=== PATIENT | female | born 1930 | race Caucasian/White ===

== ENCOUNTER 2019-08-01 12:30 | Inpatient (IN) | payer MEDICARE, MEDICAID ==
[~2019-08-01] VITALS: Ht 144.8 cm; Wt 49.4 kg
--- NOTE | 2019-08-01 12:45 | NUR ---
Pt Estonian speaking only. Await field sales manager. Comfort and safety measures initiated.
[2019-08-01 12:49] LABS: BASOPHILS # (AUTO) 0.1 /CMM (0.0-0.2); BASOPHILS % (AUTO) 0.7 % (0.0-2.0); EOSINOPHILS % (AUTO) 2.8 % (0.0-6.0); HEMATOCRIT 36 % (33-45); HEMOGLOBIN 12.3 g/dL (11.5-14.8); LYMPHOCYTES # (AUTO) 1.9 /CMM (0.8-4.8); LYMPHOCYTES % (AUTO) 21.7 % (20.0-44.0); MEAN CORPUSCULAR HGB CONC 35 g/dl (31.0-36.0); MEAN CORPUSCULAR VOLUME 90 fL (82-100); MONOCYTES # (AUTO) 0.6 /CMM (0.1-1.30); MONOCYTES % (AUTO) 6.5 % (2.0-12.0); NEUTROPHILS # (AUTO) 5.9 /CMM (1.8-8.9); NEUTROPHILS % (AUTO) 68.3 % (43.0-81.0); PLATELET COUNT (AUTO) 456 /CMM (150-450); RED BLOOD CELL COUNT(AUTO) 3.99 MIL/uL (4.0-5.2); WHITE BLOOD COUNT (AUTO) 8.7 K/uL (4.3-11.0)
--- NOTE | 2019-08-01 13:00 | NUR ---
[employer] Sales Clerk Natividad here to interpret. Pt updated with plan of care
[2019-08-01 13:02] LABS: CALCIUM, SERUM 9.1 mg/dL (8.5-10.1); CARBON DIOXIDE 23 mmol/L (21-32); CHLORIDE 102 mmol/L (98-107); CREATININE 0.7 mg/dL (0.6-1.3); GLUCOSE 110 mg/dL (74-106); POTASSIUM 3.3 mmol/L (3.5-5.1); SODIUM SERUM 137 mmol/L (136-145); UREA NITROGEN, BLOOD 13 mg/dL (7-18)
[2019-08-01 13:05] LABS: APPEARANCE,URINE Clear (CLEAR); BILIRUBIN,URINE Negative (NEGATIVE); BLOOD, URINE Trace-intact Ery/uL (NEGATIVE); COLOR,URINE Yellow (YELLOW); KETONES,URINE Negative (NEGATIVE); LEUKOCYTE ESTERASE ,URINE Negative (NEGATIVE); NITRITE, URINE Negative (NEGATIVE); PH,URINE 5.5 (5.0-8.0); PROTEIN,URINE Negative (NEGATIVE); UGLUCOSE Negative (NEGATIVE); UROBILINOGEN,URINE 0.2 EU/dL (0.2)
[2019-08-01 13:08] LABS: BACTERIA,URINE Few /HPF (None Seen); SQUAMOUS EPITHELIAL CELL,UR Few /HPF (None Seen)
[2019-08-01 13:17] LABS: ALANINE AMINOTRANSFERASE 13 U/L (12-78); ALBUMIN 3.9 g/dL (3.4-5.0); ALKALINE PHOSPHATASE 78 U/L (46-116); ASPARTATE AMINOTRANSFERASE 20 U/L (15-37); BILIRUBIN,DIRECT 0.1 mg/dL (0.0-0.2); BILIRUBIN,TOTAL 0.7 mg/dL (0.2-1.0); TOTAL PROTEIN, SERUM 7.6 g/dL (6.4-8.2)
--- NOTE | 2019-08-01 13:27 | NUR ---
DR.BURKOWITZ YESSICA MARINE ENGINEER [facility], TRANSFERRED CALL TO
--- NOTE | 2019-08-01 13:28 | NUR ---
EPIC PAGED, FIGHT MANAGER
[2019-08-01] MEDS ORDERED: MORPHINE SULFATE INJ 2 MG/ML DISP.SYRIN ONE (13:40)
[2019-08-01] MEDS ORDERED: SIMV20TA6 PO (13:48)
[2019-08-01] MEDS ORDERED: FAMO20TA8 PO (13:48)
[2019-08-01] MEDS ORDERED: FERR324T PO (13:48)
[2019-08-01] MEDS ORDERED: ASPI-1152 PO (13:48)
[2019-08-01] MEDS ORDERED: CARV3.122 PO (13:48)
[2019-08-01] MEDS ORDERED: DOCU250C88 PO (13:48)
[2019-08-01] MEDS ORDERED: AMLO5TAB9 PO (13:48)
[2019-08-01] MEDS ORDERED: LOSA100T31 PO (13:48)
[2019-08-01] MEDS ORDERED: MORPHINE SULFATE INJ 2 MG/ML DISP.SYRIN IV ONE (14:00)
[2019-08-01] MEDS ORDERED: MAGNESIUM HYDROXIDE 30 ML UDC PO PRN (14:30)
[2019-08-01] MEDS ORDERED: ACETAMINOPHEN 325 MG TABLET PO PRN (14:30)
[2019-08-01] MEDS ORDERED: POTASSIUM CHLORIDE 20 MEQ TAB.PRT.SR PO ONE (14:30)
[2019-08-01] MEDS ORDERED: ZOLPIDEM TARTRATE 5 MG TABLET PO PRN (14:30)
[2019-08-01] MEDS ORDERED: MORPHINE SULFATE INJ 2 MG/ML DISP.SYRIN SQ PRN (14:30)
[2019-08-01] MEDS ORDERED: Z GUARD REMEDY 2 OZ OINT TP PRN (14:30)
[2019-08-01] MEDS ORDERED: MAG HYDROX/AL HYDROX/SIMETH 30 ML UDC PO PRN (14:30)
[2019-08-01] MEDS ORDERED: HYDROCODONE/APAP 5/325MG 1 EACH TABLET PO PRN (14:30)
[2019-08-01] MEDS ORDERED: DOCUSATE SODIUM 250 MG CAPSULE PO PRN (14:30)
[2019-08-01] MEDS ORDERED: hydrALAZINE HCL IV 20 MG VIAL IV PRN (14:30)
[2019-08-01] MEDS ORDERED: ONDANSETRON HCL/PF 4 MG/2 ML VIAL IVP PRN (14:30)
[2019-08-01] MEDS ORDERED: hydrALAZINE HCL 25 MG TABLET PO PRN (14:30)
--- NOTE | 2019-08-01 14:45 | NUR ---
Pt appears comfortable in bed. Son at bedside aware of plan of care For admit to room 103. Nurse Knowledge Exchange w/RN Soon Transport to room in NAD Stable. VSS
--- NOTE | 2019-08-01 14:59 | NUR ---
RECEIVED REPORT FROM CHARGE NURSE SOON. PT IN BED, AWAKE, ON ROOM AIR, SATURATING WELL, RESPIRATIONS EASY AND UNLABORED, ALERT AND ORIENTED X 3, SERBIAN SPEAKING. FOSTER CATHETER DRAINING CLEAR YELLOW URINE. LEFT AC G18 PATENT, SALINE LOCK. BED IN LOW POSITION, LOCKED, CALL LIGHT WITHIN REACH.
--- NOTE | 2019-08-01 15:48 | NUR ---
SACRAL REDNESS NOTED ON ADMISSION, PHOTO TAKEN, PLACED INTO CHART, WOUND CONSULT ORDERED.
[2019-08-01] MEDS: IV NS 0.9% 1,000 ML IV PRN (15:58)
[2019-08-01 16:00] VITALS: BP 150/70
--- NOTE | 2019-08-01 16:20 | NUR ---
CONSENT FORM SIGNED FOR LEFT HIP INTRAMEDULLARY NAIL PROCEDURE
[2019-08-01] MEDS: CARVEDILOL 3.125 MG TABLET PO SCH (17:12)
[2019-08-01] MEDS: SIMVASTATIN 20 MG TABLET PO SCH (17:12)
[2019-08-01] MEDS: FAMOTIDINE (20 MG) 20 MG TABLET PO SCH (17:12)
--- NOTE | 2019-08-01 18:00 | NUR ---
NEW IV ACCESS OBTAINED, RIGHT AC G20, SITE IS CLEAN, PATENT, SALINE LOCK IN PLACE.
--- NOTE | 2019-08-01 18:53 | NUR ---
MS RN CLOSING NOTE PT IN BED, AWAKE, ALERT AND ORIENTED X 3, FAMILY BY BEDSIDE. ON ROOM AIR, SATURATING WELL, NO SIGNS OF RESPIRATORY DISTRESS NOTED, RESPIRATIONS EASY UNLABORED. IV NS INFUSING AT 75ML/HR INTO LEFT AC G18, SITE IS PATENT, NO SIGNS OF INFILTRATION NOTED. ALL DUE MEDS GIVEN, PROVIDED SAFETY AND COMFORT THROUGHOUT SHIFT. BED IN LOW POSITION, LOCKED, CALL LIGHT PLACED WITHIN REACH. WILL ENDORSE TO NOC SHIFT NURSE.
--- NOTE | 2019-08-01 20:00 | NUR ---
MS RN INITIAL NOTE PT IN BED, AWAKE, ALERT AND ORIENTED X 3, FAMILY BY BEDSIDE, S/P FALL LT HIP FX, POSSIBLE ORIF TOMORROW, NPO AFTER MDNIGHT. ON ROOM AIR, SATURATING WELL, NO SIGNS OF RESPIRATORY DISTRESS NOTED, RESPIRATIONS EASY UNLABORED. IV NS INFUSING AT 75ML/HR INTO LEFT AC G18, SITE IS PATENT, NO SIGNS OF INFILTRATION NOTED. ALL DUE MEDS GIVEN, PROVIDED SAFETY AND COMFORT THROUGHOUT SHIFT. BED IN LOW POSITION, LOCKED, CALL LIGHT PLACED WITHIN REACH. WILL ENDORSE TO NOC SHIFT NURSE.
[2019-08-02] MEDS: IV NS 0.9% 1,000 ML IV PRN (05:53)
--- NOTE | 2019-08-02 06:25 | NUR ---
RN CLOSING NOTE ENDORSED PT TO AM RN, PT FOR ORIF TODAY, NPO EXCEPT MEDS, CONSENT SIGNED AND CHECK LIST COMPLETE, IV SITE INTACT, PATENT WELL SECURED. ALL PT NEEDS MET, NS@75ML, WELL TOLERATED.
[2019-08-02 07:19] LABS: BASOPHILS % (AUTO) 0.6 % (0.0-2.0); EOSINOPHILS % (AUTO) 1.7 % (0.0-6.0); HEMATOCRIT 34 % (33-45); HEMOGLOBIN 11.6 g/dL (11.5-14.8); LYMPHOCYTES # (AUTO) 1.5 /CMM (0.8-4.8); MEAN CORPUSCULAR HGB CONC 34 g/dl (31.0-36.0); MEAN CORPUSCULAR VOLUME 90 fL (82-100); MONOCYTES # (AUTO) 0.6 /CMM (0.1-1.30); MONOCYTES % (AUTO) 8.5 % (2.0-12.0); NEUTROPHILS # (AUTO) 5.3 /CMM (1.8-8.9); NEUTROPHILS % (AUTO) 69.2 % (43.0-81.0); PLATELET COUNT (AUTO) 423 /CMM (150-450); RED BLOOD CELL COUNT(AUTO) 3.82 MIL/uL (4.0-5.2); WHITE BLOOD COUNT (AUTO) 7.6 K/uL (4.3-11.0)
--- NOTE | 2019-08-02 07:20 | NUR ---
MS/RN OPENING NOTES RECEIVED PATIENT IN BED. SLEEPING COMFORTABLY. EASILY AROUSABLE. PATIENT ALERT AND ORIENTED X3. NO PAIN OR ACUTE DISTRESS AT THIS TIME. RESPIRATION EVEN AND UNLABORED. SKIN IS DRY WARM TO TOUCH. CONTINUE TO MONITOR PATIENT FOR S/P FALL, LT HIP FX. NPO STATUS AFTER MIDNIGHT MAINTAINED. PATIENT NOTED ON ROOM AIR, SATURATING WELL. NOTED WITH IV ACCESS ON LAC #18G WITH NS INFUSING AT 75ML/HR. IV INTACT AND PATENT. FLUSHING WELL. NO S/S OR INFECTION OR INFILTRATION. ALL NEEDS ANTICIPATED. CALL LIGHT WITHIN REACHED. SAFETY MAINTAINED. BED LOCKED AND IN LOWEST POSITION. WILL CONTINUE TO MONITOR CLOSELY.
[2019-08-02 07:25] LABS: CHOLESTEROL 159 mg/dL (<200); HDL CHOLESTEROL 56 mg/dL (40-60); LDL 81 mg/dL (0-99); TRIGLYCERIDES 94 mg/dL (30-150)
[2019-08-02 07:27] LABS: CALCIUM, SERUM 8.5 mg/dL (8.5-10.1); CARBON DIOXIDE 23 mmol/L (21-32); CHLORIDE 103 mmol/L (98-107); CREATININE 0.5 mg/dL (0.6-1.3); GLUCOSE 111 mg/dL (74-106); MAGNESIUM 1.7 mg/dL (1.8-2.4); PHOSPHORUS 2.6 mg/dL (2.5-4.9); POTASSIUM 3.9 mmol/L (3.5-5.1); SODIUM SERUM 137 mmol/L (136-145); UREA NITROGEN, BLOOD 6 mg/dL (7-18)
[2019-08-02 08:00] VITALS: BP 156/74
[2019-08-02] MEDS: AMLODIPINE BESYLATE 5 MG TABLET PO SCH (08:54)
[2019-08-02] MEDS: CARVEDILOL 3.125 MG TABLET PO SCH ×2 (08:54→17:00)
[2019-08-02] MEDS: ASPIRIN EC 81 MG TABLET.DR PO SCH (08:54)
[2019-08-02] MEDS: FAMOTIDINE (20 MG) 20 MG TABLET PO SCH ×2 (08:55→17:00)
[2019-08-02] MEDS: Magnesium 1GM/D5W 100ML PREMIX 100 ML IV SCH ×2 (09:38→10:33)
--- NOTE | 2019-08-02 09:46 | NUR ---
WOUND CARE CONSULT: PT PRESENTS WITH BLANCHABLE REDNESS TO SACRUM, PRESENT ON ADMISSION. RECOMMENDATIONS MADE FOR SKIN PROTECTION. DISCUSSED WITH NURSING STAFF. PT ON ISOFLEX LOW AIRLOSS BED. WILL SEE PRN. ANGELES IN AGREEMENT WITH PLAN OF CARE. Addendum: 08/02/19 at 0947 by NABIL BARBOSA WND[facility] Amended: Links added.
[2019-08-02 16:00] VITALS: BP 146/72
[2019-08-02] MEDS ORDERED: MIDAZOLAM HCL 2 MG/2ML VIAL ONE (16:30)
[2019-08-02] MEDS ORDERED: FENTANYL PF 250MCG/5ML AMPUL ONE (16:31)
[2019-08-02] MEDS ORDERED: ROCURONIUM BROMIDE 50 MG/5 ML ONE (16:32)
[2019-08-02] MEDS ORDERED: BACITRACIN 50000 UNITS/VIAL ONE (16:33)
[2019-08-02] MEDS ORDERED: BUPIVACAINE 0.5 % PF 150 MG/30 ML VIAL ONE (16:33)
[2019-08-02] MEDS ORDERED: ANESTHESIA TRAY IN PYXIS 1 EA TRAY MC ONE (16:33)
[2019-08-02] MEDS: SIMVASTATIN 20 MG TABLET PO SCH (17:11)
--- NOTE | 2019-08-02 17:11 | NUR ---
MS/RN NOTES PATIENT WAS PICKED UP BY NURSES FROM SURGERY. FAMILY AT BEDSIDE. PATIENT LEFT THE UNIT IN STABLE CONDITION. AWAITING FOR THE PATIENT'S RETURN.
--- NOTE | 2019-08-02 19:18 | NUR ---
RN M/S NOTE RECEIVED REPORT FROM BERNARD LANDERS IN OR PT TO BE TRANSPORTED BACK TO ROOM, PT HAD LEFT HIP SURGERY, 3 NEW INCISIONS, WILL ASSESS PT WHEN ARRIVES ON UNIT.
--- NOTE | 2019-08-02 19:21 | NUR ---
MS/RN NOTES PATIENT IS STILL IN OR. ENDORSED TO PM NURSE. AWAITING FOR PATIENT'S RETURN.
[2019-08-02 19:29] LABS: CREATININE 0.6 mg/dL (0.6-1.3); POTASSIUM 3.6 mmol/L (3.5-5.1)
[2019-08-02] MEDS ORDERED: ACETAMINOPHEN 325 MG TABLET PO PRN (19:30)
[2019-08-02 20:00] VITALS: BP 160/79
[2019-08-02 23:20] LABS: BASOPHILS # (AUTO) 0.1 /CMM (0.0-0.2); BASOPHILS % (AUTO) 0.5 % (0.0-2.0); EOSINOPHILS % (AUTO) 0.3 % (0.0-6.0); HEMATOCRIT 37 % (33-45); HEMOGLOBIN 12.2 g/dL (11.5-14.8); LYMPHOCYTES # (AUTO) 0.9 /CMM (0.8-4.8); LYMPHOCYTES % (AUTO) 8.1 % (20.0-44.0); MEAN CORPUSCULAR HGB CONC 33 g/dl (31.0-36.0); MEAN CORPUSCULAR VOLUME 91 fL (82-100); MONOCYTES # (AUTO) 0.5 /CMM (0.1-1.30); MONOCYTES % (AUTO) 4.8 % (2.0-12.0); NEUTROPHILS # (AUTO) 9.9 /CMM (1.8-8.9); NEUTROPHILS % (AUTO) 86.3 % (43.0-81.0); PLATELET COUNT (AUTO) 441 /CMM (150-450); WHITE BLOOD COUNT (AUTO) 11.4 K/uL (4.3-11.0)
[2019-08-03] MEDS ORDERED: CEFAZOLIN 2 GM in IV D5W 50 ML IV SCH ×3 (02:00)
[2019-08-03] MEDS ORDERED: CEFAZOLIN 2 GM in IV D5W 100 ML IV SCH ×2 (02:00→03:00)
[2019-08-03] MEDS: CEFAZOLIN 2 GM in IV D5W 100 ML IV SCH ×2 (03:43→09:51)
[2019-08-03] MEDS: IV NS 0.9% 1,000 ML IV PRN (03:43)
[2019-08-03 04:00] VITALS: BP 121/87
[2019-08-03 06:47] LABS: BASOPHILS % (AUTO) 0.1 % (0.0-2.0); HEMATOCRIT 31 % (33-45); HEMOGLOBIN 10.8 g/dL (11.5-14.8); LYMPHOCYTES % (AUTO) 10.9 % (20.0-44.0); MEAN CORPUSCULAR HGB CONC 35 g/dl (31.0-36.0); MEAN CORPUSCULAR VOLUME 90 fL (82-100); MONOCYTES # (AUTO) 1.1 /CMM (0.1-1.30); MONOCYTES % (AUTO) 12.2 % (2.0-12.0); NEUTROPHILS # (AUTO) 6.8 /CMM (1.8-8.9); NEUTROPHILS % (AUTO) 76.8 % (43.0-81.0); PLATELET COUNT (AUTO) 374 /CMM (150-450); RED BLOOD CELL COUNT(AUTO) 3.47 MIL/uL (4.0-5.2); WHITE BLOOD COUNT (AUTO) 8.9 K/uL (4.3-11.0)
[2019-08-03 07:24] LABS: CALCIUM, SERUM 8.2 mg/dL (8.5-10.1); CARBON DIOXIDE 24 mmol/L (21-32); CHLORIDE 103 mmol/L (98-107); CREATININE 0.5 mg/dL (0.6-1.3); GLUCOSE 133 mg/dL (74-106); POTASSIUM 3.6 mmol/L (3.5-5.1); SODIUM SERUM 138 mmol/L (136-145); UREA NITROGEN, BLOOD 6 mg/dL (7-18)
--- NOTE | 2019-08-03 07:30 | NUR ---
PT IN BED, AWAKE, ALERT AND ORIENTED, DENIES PAIN, NO FACIAL GRIMACING, NOT IN DISTRESS, CALL LIGHT WITHIN REACH, KEPT SCIENTIFIC WRITER BED, F/C IN PLACE, DRAINING WELL, NEEDS ATTENDED.
[2019-08-03 08:00] VITALS: BP 148/58
[2019-08-03] MEDS: FAMOTIDINE (20 MG) 20 MG TABLET PO SCH ×2 (09:51→16:39)
[2019-08-03] MEDS: ASPIRIN EC 81 MG TABLET.DR PO SCH (09:51)
[2019-08-03] MEDS: CARVEDILOL 3.125 MG TABLET PO SCH ×2 (09:51→16:40)
[2019-08-03] MEDS: AMLODIPINE BESYLATE 5 MG TABLET PO SCH (09:51)
[2019-08-03] MEDS: ENOXAPARIN SODIUM 30 MG/0.3 ML DISP.SYRIN SQ SCH (12:41)
--- NOTE | 2019-08-03 12:49 | NUR ---
RN MS NOTES PT IN BED, AWAKE, ALERT AND ORIENTED, DUE MEDS GIVEN ORDERED, NOT IN PAIN OR DISTRESS, SEEN BY JOYA JAVED, PLAN OF CARE DISCUSSED WITH PT, VERBALIZED UNDERSTANDING, NEEDS ATTENDED, KEPT COMFORTABLE.
[2019-08-03 16:00] VITALS: BP 130/58
[2019-08-03] MEDS: SIMVASTATIN 20 MG TABLET PO SCH (17:23)
--- NOTE | 2019-08-03 18:15 | NUR ---
RN MS NOTES PT IN BED, AWAKE, ALERT AND ORIENTED, NOT IN PAIN OR DISTRESS, SEEN BY PHYSICAL THERAPIST TODAY, DAUGHTER AT BEDSIDE, CALL LIGHT WITHIN REACH, DRESSING AT SURGICAL SITE TO LEFT LEG INTACT AND DRY, PM CARE PROVIDED, ASSISTED WITH REPOSITIONING, NEEDS ATTENDED.
--- NOTE | 2019-08-03 19:25 | NUR ---
RN M/S ENTRY NOTES, PATIENT IN BED, AWAKE, AOX3, MONGOLIAN SPEAKING. NO S/S OF ACUTE DISTRESS NOTED, RESPIRATION EVEN AND UNLABORED, NO SOB NOTED, FAMILY AT BED SIDE, DENIES ANY PAIN OR DISCOMFORT AT THIS TIME. RFA #20G IV SITE NOTED WITH NO S/S OF INFECTION/ INFILTRATION, RUNNING WITH FLUIDS ORDERED. SAFETY MAINTAINED, BED AT THE LOWEST LOCKED POSITION, KEPT CLEAN AND DRY. CALL LIGHT WITHIN REACH. WILL CONTINUE TO MONITOR PATIENT PER PLAN OF CARE
[2019-08-03 20:00] VITALS: BP 138/71
[2019-08-04 04:00] VITALS: BP 135/62
--- NOTE | 2019-08-04 06:56 | NUR ---
RN M/S ENTRY NOTES, PATIENT REMAINED IN BED, SLEEPING COMFORTABLY AT THIS TIME. NO S/S OF ACUTE DISTRESS NOTED, RESPIRATION EVEN AND UNLABORED, NO SOB NOTED, NO S/S OF PAIN NOTED AT THIS TIME. RFA #20G IV SITE NOTED WITH NO S/S OF INFECTION/ INFILTRATION, F/C IN PLACE, PATENT DRAINING WELL WITH CLEAR YELLOW URINE WITH OUTPUT OF 300 IN THIS SHIFT, FOSTER CATH KEPT BECAUSE, PATIENT AND FAMILY MEMBERS REQUESTED TO REMOVE IT IN AM. GOOD PERICARE PROVIDED. SAFETY MAINTAINED, BED AT THE LOWEST LOCKED POSITION, KEPT CLEAN AND DRY. CALL LIGHT WITHIN REACH. WILL ENDORSE TO AM SHIFT NURSE FOR TORY
--- NOTE | 2019-08-04 07:00 | NUR ---
MS RN OPENING NOTE RECEIVED REPORT AT BEDSIDE. PT IN BED, AWAKE, ALERT AND ORIENTED X 3. ON ROOM AIR, SATURATING WELL, NO SIGNS OF RESPIRATORY DISTRESS OR SOB NOTED, RESPIRATIONS EVEN AND UNLABORED. IV RFA # 20 SL, SITE IS PATENT AND FLUSHED WELL. NO SIGNS OF INFILTRATION NOTED. BED IN LOW POSITION, LOCKED, CALL LIGHT PLACED WITHIN REACH. WILL CON' TO MONITOR CLOSELY.
[2019-08-04 08:00] VITALS: BP 144/72
[2019-08-04] MEDS: ASPIRIN EC 81 MG TABLET.DR PO SCH (09:16)
[2019-08-04] MEDS: FAMOTIDINE (20 MG) 20 MG TABLET PO SCH ×2 (09:16→17:56)
[2019-08-04] MEDS: CARVEDILOL 3.125 MG TABLET PO SCH ×2 (09:16→17:56)
[2019-08-04] MEDS: AMLODIPINE BESYLATE 5 MG TABLET PO SCH (09:17)
[2019-08-04] MEDS: ENOXAPARIN SODIUM 30 MG/0.3 ML DISP.SYRIN SQ SCH (12:03)
[2019-08-04] MEDS ORDERED: ENOX30DI SQ (13:41)
[2019-08-04 16:00] VITALS: BP 120/55
[2019-08-04 17:56] VITALS: BP 138/70
[2019-08-04] MEDS: SIMVASTATIN 20 MG TABLET PO SCH (17:56)
--- NOTE | 2019-08-04 19:29 | NUR ---
RN MS NOTE PT TRANSFERRED TO [facility] WITH AMBULANCE. WAS WAS STABLE, NO SIGN OF RESPIRATORY DISTRESS OR SOB NOTED. ON NC 2L SATURATING WELL. NO COMPLAIN OF PAIN. ALL NEEDS ATTENDANT. FOSTER CATHETER REMOVED AND PT VOIDED ONCE. REPORT GIVEN TO THE [facility] AND REHAB. FAMILY MEMBERS AT BEDSIDE UPON DISCHARGE.
== END 2019-08-04 20:00 | DRG 482 ==
LOC: ER 12:32 → MEDSG1 14:07
PROVIDERS: ADMIT Internal Medicine; ATTEND Nurse Practitioner Acute Care
PROC: 0QS706Z Reposition Left Upper Femur with Intramedullary Internal Fixation Device, Open Approach (ICD-10-PCS; principal; 2019-08-02)
DX: M80.052A Age-related osteoporosis with current pathological fracture, left femur, initial encounter for fracture (principal); W01.0XXA Fall on same level from slipping, tripping and stumbling without subsequent striking against object, initial encounter; Y92.000 Kitchen of unspecified non-institutional (private) residence as the place of occurrence of the external cause; I25.10 Atherosclerotic heart disease of native coronary artery without angina pectoris; I10 Essential (primary) hypertension; E78.5 Hyperlipidemia, unspecified; E83.42 Hypomagnesemia; E87.6 Hypokalemia; I70.0 Atherosclerosis of aorta
CPT/HCPCS: 36415; 71045-TC; 73020; 73502; 73552; 80048-TC; 80061-TC; 80076-TC; 81000-TC; 83735-TC; 84100-TC; 84484-TC; 85025-TC; 85730-TC; 86850-TC; 87081-TC; 93307-TC; 97110-TC; 97116-TC; 97530-TC; A4216; A6209; C1713; G0378; J0360; J0690; J1100; J1650; J2250; J2270; J2405; J2704; J3010; J3475; J3490; J7030; J7060